=== PATIENT | female | born 1980 | race Caucasian/White ===

== ENCOUNTER 2018-09-23 06:10 | Day surgery (SDC) | payer OTHER | END 2018-09-23 09:00 | disposition home or self-care (01) | LOC: AMB-ENDOS 06:10 | DX: K29.70 Gastritis, unspecified, without bleeding (principal); K43.3 Parastomal hernia with obstruction, without gangrene ==

== ENCOUNTER 2020-09-05 06:37 | Day surgery (SDC) | payer OTHER ==
[2020-09-05] MEDS ORDERED: PERCOCET 5-3251 EACH PO (14:59)
[2020-09-05] MEDS ORDERED: SURFAK240 M1 PO (15:00)
[2020-09-05] MEDS ORDERED: CIPRO500 MG PO (15:02)
[2020-09-05] MEDS ORDERED: PEPCID20 MG PO (15:02)
== END 2020-09-05 19:40 | disposition home or self-care (01) ==
LOC: CIR.AMB 06:37
PROVIDERS: ATTEND Surgery
DX: K42.9 Umbilical hernia without obstruction or gangrene (principal); K43.9 Ventral hernia without obstruction or gangrene; K80.10 Calculus of gallbladder with chronic cholecystitis without obstruction; Z20.822 Contact with and (suspected) exposure to COVID-19